=== PATIENT | male | born 1975 | race African-American/Black ===

== ENCOUNTER 2016-12-10 17:03 | Emergency (ER) | payer BC, OTHER ==
[~2016-12-10] VITALS: Ht 182.9 cm; Wt 121.1 kg
--- NOTE | ~2016-12-10 | EKG ---
[address] [address] ELECTROCARDIOGRAM REPORT Name: HOME JOHNSON Room [facility]: [facility]ark#: [id number] Admission: 12/10/16 Attend Phys: Discharge: 12/10/16 Date of : 73 Report #: [id number] THIS REPORT FOR: //name// [facility] ED Test Date: 2016-12-10 Test Time: 18:01:25 Pat Name: HOME JOHNSON Department: Room: Gender: Manager Of Security: Marjan LEVINE : 1975 Requested By: Fabienne Contreras Order Number: [id number] MD: Fitz Garces Measurements Intervals [place] Rate: 121 P: 43 VA: 169 QRS: 15 QRSD: 97 T: 35 QT: 301 QTc: 427 Interpretive Statements Sinus tachycardia No previous ECG available for comparison Electronically Signed On 12-15-2016 8:07:53 CDT by Fitz Garces [email or web address] <ELECTRONICALLY SIGNED> By: Fitz Garces MD 12/15/16 0807 180 1801 Fitz Garces MD /LIZZ
[2016-12-10 17:30] LABS: URINE BILIRUBIN NEGATIVE (Negative); URINE BLOOD TRACE (Negative); URINE COLOR YELLOW; URINE GLUCOSE-RANDOM* NEGATIVE (Negative); URINE KETONES NEGATIVE (Negative); URINE NITRITE NEGATIVE (Negative); URINE PROTEIN (DIPSTICK) NEGATIVE (Negative); URINE SPECIFIC GRAVITY 1.015 (1.003-1.035)
[2016-12-10] MEDS ORDERED: CENTRUM SILVER1 EAC2 PO (18:10)
[2016-12-10] MEDS ORDERED: COZAAR100 MG PO (18:10)
[2016-12-10] MEDS ORDERED: FISH OIL 1,001000 M2 PO (18:10)
[2016-12-10 18:18] LABS: ABSOLUTE NEUTROPHILS 11.5 thou/uL (1.4-8.2); BASOPHILS 0.3 % (0.0-2.0); EOSINOPHILS 0.5 % (0.0-3.0); HEMATOCRIT 44.2 % (42.0-52.0); HEMOGLOBIN 15.4 gm/dL (14.0-18.0); LYMPHOCYTES 11.8 % (24.0-44.0); MCH 30.2 pg (26.0-34.0); MCHC 34.8 g/dL (28.0-37.0); MONOCYTES 7.6 % (1.0-8.0); PLATELET COUNT 254 thou/uL (150-400); POLYS 79.8 % (36.0-66.0); RBC 5.08 mil/uL (4.50-6.00); RDW 12.4 % (10.5-14.5); WBC 14.4 thou/uL (4.0-11.0)
[2016-12-10 18:20] LABS: MANUAL DIFF NO
[2016-12-10 18:23] LABS: CALCIUM 9.1 mg/dL (8.5-10.1); CREATININE 1.2 mg/dL (0.7-1.3); POTASSIUM 3.8 mmol/L (3.5-5.1)
[2016-12-10 18:28] LABS: TOTAL BILIRUBIN 0.6 mg/dL (<0.1-1.0); TOTAL PROTEIN 7.5 g/dL (6.4-8.2)
[2016-12-10] MEDS ORDERED: NORCO 5-325 TA1 EACH PO (19:23)
[2016-12-10] MEDS ORDERED: CIPRO500 MG PO ×2 (19:26→19:27)
[2016-12-10] MEDS ORDERED: FLAGYL500 MG PO ×2 (19:26→19:27)
[2016-12-10] MEDS ORDERED: ZOFRAN ODT4 MG PO (19:27)
[2016-12-10 20:15] VITALS: BP 168/98
== END 2016-12-10 20:17 | disposition home or self-care (01) ==
LOC: ER 17:03
PROVIDERS: Physician Assistant
DX: K57.32 Diverticulitis of large intestine without perforation or abscess without bleeding (principal); K52.89 Other specified noninfective gastroenteritis and colitis; I10 Essential (primary) hypertension; F17.210 Nicotine dependence, cigarettes, uncomplicated; F10.99 Alcohol use, unspecified with unspecified alcohol-induced disorder